=== PATIENT | female | born 1950 | race African-American/Black ===

== ENCOUNTER 2025-02-14 23:02 | Emergency (ER) | payer OTHER ==
[~2025-02-14] VITALS: Ht 167.6 cm; Wt 77.2 kg
--- NOTE | 2025-02-15 00:32 | DVH ---
CLINICAL INDICATION: STATUS POST FALL RIGHT ELBOW AND UPPER ARM PAIN TECHNIQUE: XYXY R HUMERUS XRAY Comparison: None FINDINGS/IMPRESSION: : Mildly comminuted spiral type fracture of the proximal and mid humeral diaphysis with greater than a full shaft with posterior displacement and 1/2 shafts width lateral displacement of the distal fragment. Mild varus angulation.
--- NOTE | 2025-02-15 00:33 | DVH ---
CT HEAD WITHOUT CONTRAST INDICATION: STATUS POST FALL HEAD INJURY ON BLOOD THINNERS COMPARISON: None TECHNIQUE: CT of the head without intravenous contrast. RADIATION DOSE: CTDIvol: 55.01 mGy, DLP: 1082.33 mGy*cm FINDINGS: There is no evidence of acute intracranial hemorrhage, extra-axial collection, mass effect, midline shift, herniation or hydrocephalus. The ventricles, sulci and cisterns are age appropriate. The prince-white differentiation is intact. 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 Scattered hypodensities in the subcortical, deep, and periventricular white matter of both cerebral hemispheres compatible with [id number] chronic small vessel ischemia. The visualized paranasal sinuses and mastoid air cells are clear. The surrounding soft tissues and osseous structures are unremarkable. IMPRESSION: No evidence of acute intracranial hemorrhage, mass effect or hydrocephalus.
--- NOTE | 2025-02-15 00:37 | DVH ---
CLINICAL INDICATION: STATUS POST FALL RIGHT ELBOW AND UPPER ARM PAIN TECHNIQUE: XYXY R ELBOW 3 VIEW XRAY Comparison: XY R HUMERUS XRAY on DOS: 02/14/25 FINDINGS/IMPRESSION: : Spiral type humeral diaphyseal fracture again noted. No additional fracture within the elbow. Soft tissues are unremarkable.
--- NOTE | 2025-02-15 00:42 | ED.PDOC ---
Mult. trauma (HPI) HPI Comments PT PRESENTED TO ED FOR MECHANICAL FALL INJURY X1 HOUR AGO. PT STATED SHE FELL ON RIGHT ARM. (-) LOC. (+) RIGHT EYE PAIN. (+) BLOOD THINNER ASPIRIN. HX: ESRD (RIGHT UPPER ARM FISTULA), HTN. GCS-15, ALL VSS DENIES NUMBNESS, WEAKNESS, CHEST PAIN, SHORTNESS OF BREATH, NAUSEA, VOMITING, OR ABDOMINAL PAIN Chief Complaint: Fall Injury Time Seen by MD: 23:04 Reviewed notes: Nurses Notes, Medications, Allergies Allergies: Coded Allergies: No Known Drug Allergy (Verified Allergy, Unknown, 02/14/25) Information Source: Patient, Relative Mode of Arrival: Ambulatory Past Medical History PAST MEDICAL HISTORY: HTN Family History Family History: Unknown Social History Smoker: Non-Smoker Alcohol: Denies ETOH Use Drugs: Denies Drug Use All Other Systems: Reviewed and Negative (SEE HPI) Physical Exam General Appearance: No Apparent Distress, Normal HEENT: Normal ENT Inspection, Pharynx Normal, TMs Normal Neck: Full Range of Motion, Non-Tender Respiratory: Chest Non-Tender, Lungs Clear, No Respiratory Distress, Normal Breath Sounds Cardiovascular: No Edema, No JVD, No Murmur, No Gallop, Normal Peripheral Pulses, Regular Rate/Rhythm Breast Exam: Deferred Gastrointestinal: No Organomegaly, Non Tender, No Pulsatile Mass, Normal Bowel Sounds, Soft Genitalia: Deferred Pelvic: Deferred Rectal: Deferred Extremities: Normal capillary refill, Normal range of motion, No pedal edema Musculoskeletal : Location: Right Extremity Location: Arm (MODERATE EDEMA RIGHT UPPER ARM WITH MODERATE TO SE NHAN TENDERNESS ON PALPATION MID HUMERUS STRENGTH SENSORY MOTION INTACT POSITIVE RADIAL PULSE.) Apperance: Normal Neurologic: Alert, No Motor Deficits, Normal Affect, Normal Mood, No Sensory Deficits Cerebellar Function: Normal Reflexes: NOT DONE Skin: Dry, Normal Color, Warm Lymphatic: No Adenopathy Was a procedure done? Was a procedure done?: No Differential Diagnosis Multiple Trauma: Fractures, Contusion X-Ray, Labs, Meds, VS Vital Signs Date Time Temp Pulse Resp B/P (MAP) Pulse Ox O2 Delivery O2 Flow Rate FiO2 02/15/25 01:52 91 20 152/82 02/15/25 01:22 88 20 148/65 02/15/25 01:12 98.1 88 20 148/65 (92) 96 98.1 02/15/25 01:12 88 20 96 Room Air 02/14/25 23:11 98.1 86 16 161/83 99 98.1 Current Medications Medications (Trade) Dose Ordered Sig/Kell Route Start Time Stop Time Status Last Admin Hydromorphone HCl (Dilaudid Injection) 0.5 mg ONCE ONCE IM 02/15/25 01:15 02/15/25 01:16 DC 02/15/25 01:22 Oxycodone/ Acetaminophen (Percocet 5/ 325MG Tablet) 1 tab ONCE ONCE PO 02/15/25 02:00 02/15/25 02:01 DC 02/15/25 02:03 X-Ray, Labs, Meds, VS Comment RIGHT HUMERUS FINDINGS/IMPRESSION: : Mildly comminuted spiral type fracture of the proximal and mid humeral diaphysis with greater than a full shaft with posterior displacement and 1/2 shafts width lateral displacement of the distal fragment. Mild varus angulation. Paged and consulted with orthopedic surgeon . Recommendation is to splint extremity and have patient follow up in his office on Monday. However, patient is a [facility] patient and is currently visiting locally and leaving for home in [facility] in the morning. Paged [facility] physician on-call and consulted. Recommendation was to discharge patient and follow up with orthopedic surgeon in [facility] through [facility] on Monday. Stating that she will call and arrange the appointment for patient. Patient placed in right shoulder splint with sling. Prior to procedure patient was given Dilaudid 0.5 mg IM patient tolerated well with mild discomfort. Inability for this provider and tender physician to call in pain medicine for patient due to system not allowing to send scheduled drugs. Discussed this with the [facility] physician recommends patient when she gets home and [facility] to do a tele medicine call for prescription of pain medications.. Discussed with patient and family member agree with plan of care. Advised on rice advised to keep sling and splint on until she follows on Monday with orthopedic surgeon. Advised on ER return precautions patient indicated understanding and agrees with discharge plan of care. Images Reviewed?: Images reviewed and evaluated by me Time of 1ST Reevaluation: 00:41 Reevaluation 1ST: Unchanged Time of 2ND Reevaluation: 00:42 Reevaluation 2ND: Unchanged Patient Education/Counseling: Diagnosis, Treatment, Need For Follow Up Family Education/Counseling: Diagnosis, Treatment, Need For Follow Up Departure 1 Departure Time of Disposition: 00:41 Impression: Primary Impression: Humeral shaft fracture Qualified Codes: S42.351A - Displaced comminuted fracture of shaft of humerus, right arm, initial encounter for closed fracture Disposition: 01 HOME / SELF CARE / HOMELESS Condition: Stable Discharged With: Relative Critical Care Note Critical Care Time?: No Stability Stability form required: JIE Brunner Feb 15, 2025 00:42
[2025-02-15] MEDS ORDERED: HYDROcodone-ACET 5/325MG TAB PO ONE (00:45)
[2025-02-15 01:12] VITALS: TEMP 98.1; O2SAT 96
[2025-02-15] MEDS ORDERED: HYDROmorphone HCL 2 MG/ML VL/or syr ONE (01:20)
[2025-02-15] MEDS: HYDROmorphone HCL 2 MG/ML VL/or syr IM ONE (01:22)
[2025-02-15 01:52] VITALS: BP 152/82; PULSE 91; RESP 20
[2025-02-15] MEDS: OXYCODONE W/ ACETAMINOPHEN 5/325MG TABLET PO ONE (02:03)
[2025-02-15] MEDS ORDERED: OXYCODONE W/ ACETAMINOPHEN 5/325MG TABLET ONE (02:03)
== END 2025-02-15 02:12 | disposition home or self-care (01) ==
LOC: ER 23:02
DX: S42.391A Other fracture of shaft of right humerus, initial encounter for closed fracture (principal); I10 Essential (primary) hypertension; W18.39XA Other fall on same level, initial encounter; Y93.89 Activity, other specified; Y92.89 Other specified places as the place of occurrence of the external cause; Y99.8 Other external cause status
CPT/HCPCS: 29105; 70450; 73060; 73080; 96372; 99285; J1171